=== PATIENT | male | born 1995 | race Hispanic/Latino ===

== ENCOUNTER 2018-06-22 07:27 | Emergency (ER) | payer SELFPAY ==
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
[2018-06-22] MEDS ORDERED: NA CHLORIDE 0.9% 1,000 ML ONE (08:23)
[2018-06-22] MEDS ORDERED: MORPHINE 4 MG/ML SYR ONE (08:23)
[2018-06-22] MEDS ORDERED: ONDANSETRON 4 MG/2 ML VIAL ONE (08:23)
--- NOTE | 2018-06-22 08:24 | RAD REPORT ---
EXAM DESCRIPTION: Xandert Single View06/22/2018 8:07 am CLINICAL HISTORY: Chest pain COMPARISON: none FINDINGS: The lungs appear clear of acute infiltrate. The heart is normal size Markedly displaced comminuted fracture involves the mid right clavicle
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
[2018-06-22 09:39] LABS: Absolute Lymphocytes (CBC) 2.1 K/uL (0.7-4.9); Absolute Neutrophil 7.1 K/uL (1.8-8.0); Basophils % 0.2 % (0-1.3); Eosinophils % 0.3 % (0-4.4); Hematocrit 41.7 % (39.6-49.0); Lymphocytes % 20.4 % (15.3-44.8); MCH 31.2 pg (27.0-35.0); MCV 92.8 fL (80-100); MPV 8.5 fL (7.6-11.3); Monocytes % 9.4 % (3.3-12.3); RBC Red Blood Cell Count 4.49 M/uL (4.33-5.43)
[2018-06-22 09:48] LABS: BUN Blood Urea Nitrogen 11 mg/dL (7-18); Bicarbonate 25 mmol/L (21-32); Glucose Level 99 mg/dL (74-106); Potassium 3.8 mmol/L (3.5-5.1); Sodium Level 142 mmol/L (136-145)
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
[2018-06-22 21:04] LABS: Urine Blood NEGATIVE (NEG); Urine Glucose NEGATIVE (NEG); Urine Protein NEGATIVE (NEG); Urine Specific Gravity 1.015 (1.005-1.030)
== END 2018-06-22 11:20 | disposition home or self-care (01) ==
LOC: ER 07:27
DX: S42.021A Displaced fracture of shaft of right clavicle, initial encounter for closed fracture (principal); V49.59XA Passenger injured in collision with other motor vehicles in traffic accident, initial encounter; Z21 Asymptomatic human immunodeficiency virus [HIV] infection status
CPT/HCPCS: 36415; 70450; 71045; 71260; 72125; 74177; 80048; 80320; 81003; 85025; 86850; 86900; 86901; 96361; 96374; 96375; 99284; J2405; J7030; Q9967